=== PATIENT | male | born 1970 | race Caucasian/White ===

== ENCOUNTER 2018-11-04 10:05 | Emergency (ER) | payer SELFPAY ==
[2018-11-04] MEDS ORDERED: Sodium Chloride 0.9% 1000 ML 1,000 ML IV STA ×2 (10:22→10:56)
[2018-11-04] MEDS ORDERED: Zofran 4 MG/2 ML VIAL IV ONE (10:29)
[2018-11-04] MEDS ORDERED: Sodium Chloride 0.9% 1000 ML 1,000 ML ONE (10:31)
[2018-11-04] MEDS ORDERED: Zofran 4 MG/2 ML VIAL ONE (10:31)
--- NOTE | 2018-11-04 10:34 | ERPHSYRPT ---
- History of Present Illness Time Seen by Provider: 11/04/18 10:19 Historian: patient Exam Limitations: no limitations Physician History: Pt started feeling "hot" this morning, became nauseated, vomited x4. He took 1000 mg Motrin, denies any pain, except back pain this morning, denies cough, congestion, sore throat, headaches, chest pain, abdominal, pain, SOB, other complaints. Timing/Duration: today Activities at Onset: none Quality: aching Abdominal Pain Onset Location: other (denies) Pain Radiation: no radiation Severity of Pain-Max: none Severity of Pain-Current: none Modifying Factors: Improves With: nothing Associated Symptoms: back, diaphoresis, nausea, vomiting Previous symptoms: no prior history Allergies/Adverse Reactions: vancomycin Allergy (Verified 11/04/18 10:43) Home Medications: Metformin HCl 1,000 mg PO DAILY 11/04/18 [History] Metoprolol Succinate 75 mg PO BID 11/04/18 [History] - Review of Systems Constitutional: Fever, Chills Eyes: No Symptoms Ears, Nose, & Throat: No Symptoms Respiratory: No Symptoms Cardiac: No Symptoms Abdominal/Gastrointestinal: Nausea, Vomiting, No Abdominal Pain, No Diarrhea Genitourinary Symptoms: No Symptoms Musculoskeletal: Back Pain Skin: No Symptoms Neurological: No Symptoms All Other Systems: Reviewed and Negative - Nursing Vital Signs Nursing Vital Signs: Initial Vital Signs Temperature 101.9 F 11/04/18 10:13 Pulse Rate 110 H 11/04/18 10:13 Respiratory Rate 16 11/04/18 10:13 Blood Pressure 198/117 11/04/18 10:13 O2 Sat by Pulse Oximetry 96 11/04/18 10:13 Pain Scale Pain Intensity 8 - Physical Exam General Appearance: no apparent distress Eye Exam: eyes nml inspection Ears, Nose, Throat Exam: normal ENT inspection, TMs normal, pharynx normal, moist mucous membranes Neck Exam: normal inspection, non-tender, supple, No carotid bruit, No JVD, No lymphadenopathy Respiratory Exam: normal breath sounds, lungs clear, airway intact, No chest tenderness Cardiovascular Exam: regular rate/rhythm, normal heart sounds, normal peripheral pulses, No murmur Gastrointestinal/Abdomen Exam: soft, normal bowel sounds, No tenderness, No distention, No mass, No guarding, No ecchymosis, No rebound, No organomegaly Back Exam: normal inspection, No CVA tenderness, No vertebral tenderness Extremity Exam: normal inspection, No calf tenderness, No thiago's sign, No pedal edema Neurologic Exam: alert, oriented x 3, cooperative, normal mood/affect Skin Exam: normal color, warm, diaphoresis, No rash, No petechiae, No jaundice, No cyanosis Lymphatic Exam: No adenopathy SpO2 Interpretation: normal O2 Delivery: Room Air - Course Nursing assessment & vital signs reviewed: Yes - Radiology Exams Chest X-ray Interpretation: Reviewed by me, Other (RML infiltrate) Ordered Tests: Active Orders 24 hr Category Date Time Status IV Insertion STAT Care 11/04/18 10:22 Active CHEST 2 VIEWS (PA AND LAT) Stat Exams 11/04/18 10:23 Completed BLOOD CULTURE Stat Lab 11/04/18 10:38 Received CBC W DIFF Stat Lab 11/04/18 10:22 Completed CK-Creatinine Phosphokinase Stat Lab 11/04/18 10:38 Completed CMP Stat Lab 11/04/18 10:38 Completed Lactic Acid Stat Lab 11/04/18 10:22 Results MAGNESIUM Stat Lab 11/04/18 10:55 Completed TROPONIN Q3H Lab 11/04/18 10:38 Completed TROPONIN Q3H Lab 11/04/18 13:30 Ordered TROPONIN Q3H Lab 11/04/18 16:30 Ordered TROPONIN Q3H Lab 11/04/18 19:30 Ordered TROPONIN Q3H Lab 11/04/18 22:30 Ordered UA W/RFX UR CULTURE Stat Lab 11/04/18 11:28 Ordered Medication Summary Generic Name Dose Route Start Last Admin Trade Name Freq PRN Reason Stop Dose Admin Azithromycin 500 mg in 250 mls @ 250 mls/hr 11/04/18 11:16 Zithromax 500 Mg/ 250 Ml Nacl Premix IV 11/04/18 12:15 STAT ONE Discontinued Medications Generic Name Dose Route Start Last Admin Trade Name Freq PRN Reason Stop Dose Admin Sodium Chloride 1,000 mls @ 999 mls/hr 11/04/18 10:22 11/04/18 11:43 Sodium Chloride 0.9% 1000 Ml IV 11/04/18 11:22 Infused .Q1H1M STA Infusion Sodium Chloride Confirm 11/04/18 10:31 Sodium Chloride 0.9% 1000 Ml Administered 11/04/18 10:32 Dose 1,000 mls @ ud .ROUTE .STK-MED ONE Sodium Chloride 1,000 mls @ 999 mls/hr 11/04/18 10:56 Sodium Chloride 0.9% 1000 Ml IV 11/04/18 11:56 .Q1H1M STA Ceftriaxone Sodium/Dextrose 1 g in 50 mls @ 100 mls/hr 11/04/18 11:16 Rocephin 1 Gm-D5w 50 Ml Bag IV 11/04/18 11:45 STAT STA Ondansetron HCl 4 mg 11/04/18 10:29 11/04/18 10:47 Zofran 4 Mg/2 Ml Vial IV 11/04/18 10:30 4 mg STAT ONE Administration Ondansetron HCl Confirm 11/04/18 10:31 Zofran 4 Mg/2 Ml Vial Administered 11/04/18 10:32 Dose 4 mg .ROUTE .[facility] ONE Lab/Rad Data: Laboratory Result Diagrams 11/04/18 10:22 11/04/18 10:38 Laboratory Results 11/04/18 11/04/18 11/04/18 Range/Units 10:55 10:38 10:38 WBC (4.0-10.5) K/mm3 RBC (4.1-5.6) M/mm3 Hgb (12.5-18.0) gm/dl Hct (42-50) % MCV (78-100) fl MCH (26-32) pg MCHC (32-36) g/dl RDW (11.5-14.0) % Plt Count (150-450) K/mm3 MPV (6-9.5) fl Gran % (36.0-66.0) % Eos # (Auto) (0-0.5) Absolute Lymphs (auto) (1.0-4.6) Absolute Monos (auto) (0.0-1.3) Lymphocytes % (24.0-44.0) % Monocytes % (0.0-12.0) % Eosinophils % (0.00-5.0) % Basophils % (0.0-0.4) % Absolute Granulocytes (1.4-6.9) Basophils # (0-0.4) Sodium (137-145) mmol/L Potassium (3.5-5.1) mmol/L Chloride (98-107) mmol/L Carbon Dioxide (22-30) mmol/L Anion Gap (5-15) MEQ/L BUN (9-20) mg/dL Creatinine (0.66-1.25) mg/dL Estimated GFR ML/MIN Glucose (74-106) mg/dL Lactic Acid (0.4-2.0) Calcium (8.4-10.2) mg/dL Magnesium 1.7 (1.6-2.3) mg/dL Total Bilirubin (0.2-1.3) mg/dL AST (17-59) U/L ALT (0-50) U/L Alkaline Phosphatase (38-126) U/L Creatine Kinase 68 (55-170) U/L Troponin I < 0.012 (0.000-0.034) ng/mL Serum Total Protein (6.3-8.2) g/dL Albumin (3.5-5.0) g/dL Influenza Type A Ag (NEGATIVE) Influenza Type B Ag (NEGATIVE) RSV (PCR) (Negative) Group A Strep Antibody (NEGATIVE) 11/04/18 11/04/18 11/04/18 Range/Units 10:38 10:38 10:22 WBC (4.0-10.5) K/mm3 RBC (4.1-5.6) M/mm3 Hgb (12.5-18.0) gm/dl Hct (42-50) % MCV (78-100) fl MCH (26-32) pg MCHC (32-36) g/dl RDW (11.5-14.0) % Plt Count (150-450) K/mm3 MPV (6-9.5) fl Gran % (36.0-66.0) % Eos # (Auto) (0-0.5) Absolute Lymphs (auto) (1.0-4.6) Absolute Monos (auto) (0.0-1.3) Lymphocytes % (24.0-44.0) % Monocytes % (0.0-12.0) % Eosinophils % (0.00-5.0) % Basophils % (0.0-0.4) % Absolute Granulocytes (1.4-6.9) Basophils # (0-0.4) Sodium 138 (137-145) mmol/L Potassium 3.9 (3.5-5.1) mmol/L Chloride 100 (98-107) mmol/L Carbon Dioxide 25 (22-30) mmol/L Anion Gap 16.5 H (5-15) MEQ/L BUN 17 (9-20) mg/dL Creatinine 0.80 (0.66-1.25) mg/dL Estimated GFR > 60.0 ML/MIN Glucose 264 H (74-106) mg/dL Lactic Acid 3.5 H (0.4-2.0) Calcium 9.6 (8.4-10.2) mg/dL Magnesium (1.6-2.3) mg/dL Total Bilirubin 1.10 (0.2-1.3) mg/dL AST 34 (17-59) U/L ALT 45 (0-50) U/L Alkaline Phosphatase 47 (38-126) U/L Creatine Kinase (55-170) U/L Troponin I (0.000-0.034) ng/mL Serum Total Protein 7.1 (6.3-8.2) g/dL Albumin 4.5 (3.5-5.0) g/dL Influenza Type A Ag NEGATIVE (NEGATIVE) Influenza Type B Ag NEGATIVE (NEGATIVE) RSV (PCR) NEGATIVE (Negative) Group A Strep Antibody NEGATIVE (NEGATIVE) 11/04/18 Range/Units 10:22 WBC 8.0 (4.0-10.5) K/mm3 RBC 5.07 (4.1-5.6) M/mm3 Hgb 14.3 (12.5-18.0) gm/dl Hct 41.6 L (42-50) % MCV 82.1 (78-100) fl MCH 28.2 (26-32) pg MCHC 34.4 (32-36) g/dl RDW 12.8 (11.5-14.0) % Plt Count 130 L (150-450) K/mm3 MPV 11.7 H (6-9.5) fl Gran % 87.4 H (36.0-66.0) % Eos # (Auto) 0.06 (0-0.5) Absolute Lymphs (auto) 0.49 L (1.0-4.6) Absolute Monos (auto) 0.43 (0.0-1.3) Lymphocytes % 6.1 L (24.0-44.0) % Monocytes % 5.4 (0.0-12.0) % Eosinophils % 0.8 (0.00-5.0) % Basophils % 0.3 (0.0-0.4) % Absolute Granulocytes 6.98 H (1.4-6.9) Basophils # 0.02 (0-0.4) Sodium (137-145) mmol/L Potassium (3.5-5.1) mmol/L Chloride (98-107) mmol/L Carbon Dioxide (22-30) mmol/L Anion Gap (5-15) MEQ/L BUN (9-20) mg/dL Creatinine (0.66-1.25) mg/dL Estimated GFR ML/MIN Glucose (74-106) mg/dL Lactic Acid (0.4-2.0) Calcium (8.4-10.2) mg/dL Magnesium (1.6-2.3) mg/dL Total Bilirubin (0.2-1.3) mg/dL AST (17-59) U/L ALT (0-50) U/L Alkaline Phosphatase (38-126) U/L Creatine Kinase (55-170) U/L Troponin I (0.000-0.034) ng/mL Serum Total Protein (6.3-8.2) g/dL Albumin (3.5-5.0) g/dL Influenza Type A Ag (NEGATIVE) Influenza Type B Ag (NEGATIVE) RSV (PCR) (Negative) Group A Strep Antibody (NEGATIVE) - Progress Progress: improved Progress Note: 11/04/18 11:36 Pt was started on IV saline bolus, reviewed his Chest X ray and labs, ordered Rocephin and Zithromax IV, but he eloped without informing anybody about his decision. He has been alert and oriented x4, mentally competent and medically stable. - Departure Departure Disposition: Home, AMA Clinical Impression: Pneumonia Qualifiers: Pneumonia type: due to unspecified organism Laterality: right Lung location: middle lobe of lung Qualified Code(s): J18.1 - Lobar pneumonia, unspecified organism Condition: Stable Critical Care Time: No Instructions: Pneumonia, Adult (DC)
[2018-11-04 10:43] VITALS: BP 198/117; PULSE 110; O2SAT 96
[2018-11-04 10:47] LABS: BASOPHIL % 0.3 % (0.0-0.4); Basophil (Absolute #) 0.02 (0-0.4); Eosinophil % 0.8 % (0.00-5.0); Eosinophil (Absolute #) 0.06 (0-0.5); Granulocyte Absolute (ANC) 6.98 (1.4-6.9); Granulocytes % 87.4 % (36.0-66.0); Hematocrit 41.6 % (42-50); Hemoglobin 14.3 gm/dl (12.5-18.0); Lymphocyte (Absolute #) 0.49 (1.0-4.6); Lymphocytes % 6.1 % (24.0-44.0); Mean Cell Volume 82.1 fl (78-100); Mean Corpuscular Hemoglobin 28.2 pg (26-32); Mean Corpuscular Hgb Concent. 34.4 g/dl (32-36); Mean Platelet Volume 11.7 fl (6-9.5); Monocyte (Absolute #) 0.43 (0.0-1.3); Monocytes % 5.4 % (0.0-12.0); Platelet Count 130 K/mm3 (150-450); Red Blood Count 5.07 M/mm3 (4.1-5.6); Red Cell Distribution Width 12.8 % (11.5-14.0)
[2018-11-04 10:48] LABS: Lactic Acid 3.5 (0.4-2.0)
[2018-11-04 10:59] LABS: ALBUMIN 4.5 g/dL (3.5-5.0); ALKALINE PHOSPHATASE 47 U/L (38-126); ANION GAP 16.5 MEQ/L (5-15); BLOOD UREA NITROGEN 17 mg/dL (9-20); CHLORIDE 100 mmol/L (98-107); Calcium 9.6 mg/dL (8.4-10.2); Carbon Dioxide 25 mmol/L (22-30); Glucose 264 mg/dL (74-106); Potassium 3.9 mmol/L (3.5-5.1); SGOT/AST 34 U/L (17-59); SGPT/ALT 45 U/L (0-50); SODIUM 138 mmol/L (137-145); Total Protein 7.1 g/dL (6.3-8.2)
--- NOTE | 2018-11-04 11:13 | XRAY ---
Indication: Fever, vomiting, and cough. Comparison: None PA/lateral chest demonstrates right middle lobe infiltrate versus atelectasis. Remaining lungs clear with a few scattered tiny calcified granulomas. Heart is not enlarged. Bony thorax intact. Impression: Right middle lobe infiltrate/atelectasis. Correlate clinically. Evidence for old granulomatous disease.
[2018-11-04] MEDS ORDERED: ROCEPHIN 1 Gm-D5w 50 ml Bag** 1 G/50 ML IVPB IV STA (11:16)
[2018-11-04] MEDS ORDERED: Zithromax 500 MG/ 250 ML NaCl Premix 500 MG/250 ML IVPB IV ONE (11:16)
[2018-11-04 11:38] LABS: Group A Strep NEGATIVE (NEGATIVE); INFLUENZA A NEGATIVE (NEGATIVE); INFLUENZA B NEGATIVE (NEGATIVE); RESPIRATORY SYNCTIAL VIRUS NEGATIVE (Negative)
[2018-11-04 12:06] LABS: Appearance CLEAR (CLEAR); Bilirubin NEGATIVE (NEGATIVE); Blood NEGATIVE Ery/ul (0-5); Glucose >=500 mg/dL (NEGATIVE); Ketones TRACE (NEGATIVE); Leukocyte Esterase NEGATIVE (NEGATIVE); Mucus SLIGHT /HPF (NEGATIVE); Nitrite NEGATIVE (NEGATIVE); Protein,Urine Dip NEGATIVE (Negative); Specific Gravity 1.024 (1.005-1.025); Urobilinogen NEGATIVE mg/dL (0-1); WBC 0-2 /HPF (0-5)
[2018-11-04 13:14] LABS: Slide Review 1 YES
== END 2018-11-04 11:30 | disposition left against medical advice (07) ==
LOC: ED 10:05
DX: J18.9 Pneumonia, unspecified organism (principal)
CPT/HCPCS: 36000; 36415; 71046; 80053; 81001; 82550; 82962; 83605; 83735; 84484; 85025; 87040; 87631; 87651; 96360; 96374; 99284; J2405